=== PATIENT | male | born 1975 | race Caucasian/White ===

== ENCOUNTER 2017-03-23 10:02 | Emergency (ER) | payer BC ==
[2017-03-23 10:34] VITALS: BP 118/67
--- NOTE | 2017-03-23 10:38 | EDM.PDOC ---
ED HPI GENERAL MEDICAL PROBLEM - General Chief Complaint: Lower Extremity Injury/Pain Stated Complaint: KNEE PAIN Time Seen by Provider: 03/23/17 10:30 Source of Information: Reports: Patient, Family History Limitations: Reports: No Limitations - History of Present Illness INITIAL COMMENTS - FREE TEXT/NARRATIVE: Patient presents with left lower leg and knee pain with associated swelling. Has been on antibiotics off and on since February 28. Cefipime, rocephin and just finished augmentin. Only improvement was noted with the rocephin. Family history of Factor V Leiden. Left front leg is swollen, calf does hurt. No redness or cellulitis associated skin inflammation. He does not complain of fever, chills, no SOB or chest pain. No abdominal pain, no nausea/vomiting. He has no other complaints today. Onset: Gradual Onset Date: 02/28/17 Duration: Chronic Location: Reports: Lower Extremity, Left Quality: Reports: Ache Severity: Moderate Associated Symptoms: Reports: No Other Symptoms Treatments ACCESS CLINICIAN: Reports: Other Medication(s) Left Knee Pain Score (Numeric/FACES): 2 - Related Data Allergies Allergy/AdvReac Type Severity Reaction Status Date / Time No Known Drug Allergies Allergy Cannot Verified 04/14/14 01:03 Remember Home Meds: Home Meds Cholecalciferol (Vitamin D3) [Vitamin D] 1 cap PO DAILY 04/13/14 [History] Cyanocobalamin (Vitamin B-12) [Vitamin B-12] 1,000 mcg SL BID 04/13/14 [History] Cyanocobalamin (Vitamin B12) [Vitamin B12] 1 ml IM Q7D 04/13/14 [History] Pedi Multivit #22/Vit D3/Vit K [Multivitamins Chewables Tablet] 2 tab PO BID [History] Vitamin B Complex 1 each PO DAILY 04/13/14 [History] ALPRAZolam [Alprazolam Xr] 0.5 mg DAILY 03/23/17 [History] FLUoxetine [PROzac] 20 mg PO DAILY 03/23/17 [History] Past Medical History - Past Health History Medical/Surgical History: Denies Medical/Surgical History Social & Family History - Tobacco Use Second Hand Smoke Exposure: No - Alcohol Use Days Per Week of Alcohol Use: 1 Number of Drinks Per Day: 1 Total Drinks Per Week: 1 - Recreational Drug Use Recreational Drug Use: No Review of Systems - Review of Systems Review Of Systems: See Below Constitutional: Reports: No Symptoms Eyes: Reports: No Symptoms Ears: Reports: No Symptoms Nose: Reports: No Symptoms Mouth/Throat: Reports: No Symptoms Respiratory: Reports: No Symptoms Cardiovascular: Reports: No Symptoms GI/Abdominal: Reports: No Symptoms Genitourinary: Reports: No Symptoms Musculoskeletal: Reports: Leg Pain Skin: Reports: Erythema Neurological: Reports: No Symptoms Psychiatric: Reports: No Symptoms ED EXAM, GENERAL - Physical Exam Exam: See Below Exam Limited By: No Limitations General Appearance: Alert, WD/WN, No Apparent Distress Eye Exam: Bilateral Eye: EOMI, PERRL Head: Atraumatic, Normocephalic Neck: Normal Inspection, Supple Respiratory/Chest: No Respiratory Distress, Lungs Clear, Normal Breath Sounds, No Accessory Muscle Use Cardiovascular: Normal Peripheral Pulses, Regular Rate, Rhythm, Systolic Murmur Peripheral Pulses: 2+: Posterior Tibial (L), Posterior Tibial (R), Dorsalis Pedis (L) GI/Abdominal: Normal Bowel Sounds, Soft, Non-Tender, No Organomegaly Extremities: Normal Range of Motion, Normal Capillary Refill, Pedal Edema, Leg Pain, Other (left leg edematous from the knee down, posterior calf pain, no redness) Neurological: Alert, Oriented, CN II-XII Intact, Normal Cognition, Normal Gait, Normal Reflexes, No Motor/Sensory Deficits Psychiatric: Normal Affect, Normal Mood Skin Exam: Warm, Dry, Intact, Normal Color. No: Erythema, Increased Warmth, Wound/Incision Lymphatic: No Adenopathy Course - Vital Signs Last Recorded V/S: Last Vital Signs Temp 35.9 C 03/23/17 10:05 Pulse 60 03/23/17 10:05 Resp 16 03/23/17 10:05 BP 118/67 03/23/17 10:05 Pulse Ox - Orders/Labs/Meds Orders: Active Orders 24 hr Category Date Time Status Knee w Cont Lt [CT] Stat Exams 03/23/17 10:50 Taken CBC W/O DIFF,HEMOGRAM [HEME] Q3D Lab 03/24/17 07:00 Ordered CBC W/O DIFF,HEMOGRAM [HEME] Q3D Lab 03/27/17 07:00 Ordered CBC W/O DIFF,HEMOGRAM [HEME] Q3D Lab 03/30/17 07:00 Ordered CBC W/O DIFF,HEMOGRAM [HEME] Q3D Lab 04/02/17 07:00 Ordered CBC W/O DIFF,HEMOGRAM [HEME] Q3D Lab 04/05/17 07:00 Ordered CBC W/O DIFF,HEMOGRAM [HEME] Q3D Lab 04/08/17 07:00 Ordered CBC W/O DIFF,HEMOGRAM [HEME] Q3D Lab 04/11/17 07:00 Ordered CULTURE BLOOD [BC] Stat Lab 03/23/17 10:50 Received CULTURE BLOOD [BC] Stat Lab 03/23/17 10:56 Received FACTOR 5 LEIDEN MUTATION [REF] Stat Lab 03/23/17 10:50 Received FACTOR 8 [REF] Stat Lab 03/23/17 13:04 Received FACTOR 9 [REF] Stat Lab 03/23/17 13:04 Received PTT,PARTIAL THROMBOPLSTIN TIME [COAG] Stat Lab 03/23/17 13:13 Ordered Container,Empty [Pharmacy Consult] Med 03/23/17 13:00 Active 1 each .XX ASDIRECTED Sodium Chloride 0.9% [Normal Saline] 100 ml Med 03/23/17 11:00 Active IV ASDIRECTED Blood Culture x2 Reflex Set [OM.PC] Stat Oth 03/23/17 10:38 Ordered Medication Orders Sodium Chloride (Normal Saline) 100 mls @ 3 mls/sec IV ASDIRECTED ORTEGA Last Admin: 03/23/17 11:45 Dose: 3 mls/sec Miscellaneous Information (Pharmacy Consult) 1 each .XX ASDIRECTED [facility] Labs: Laboratory Tests 03/23/17 03/23/17 03/23/17 Range/Units 10:50 10:50 10:50 WBC 4.3 (4.0-10.0) x10^3/uL RBC 4.75 (4.5-6.0) x10^6/uL Hgb 14.4 (14.0-18.0) g/dL Hct 42.5 (40.0-52.0) % MCV 89.5 (78.0-93.0) fL MCH 30.3 (26.0-32.0) pg MCHC 33.9 (32.0-36.0) g/dL RDW Coeff of Shaun 12.9 (10.0-15.0) % Plt Count 234 (130-400) x10^3/uL Neut % (Auto) 60.2 (50.0-80.0) % Lymph % (Auto) 30.0 (25.0-50.0) % [place] % (Auto) 7.7 (2.0-11.0) % Eos % (Auto) 1.6 (0.0-4.0) % Baso % (Auto) 0.5 (0.2-1.2) % PT (10.0-12.8) SEC INR (2.0-3.5) D-Dimer, Quantitative (<=0.58) mg/LFEU Sodium 140 (136-145) mmol/L Potassium 4.2 (3.5-5.1) mmol/L Chloride 104 (98-107) mmol/L Carbon Dioxide 28 (21-32) mmol/L BUN 9 (7-18) mg/dL Creatinine 1.0 (0.70-1.30) mg/dL Est Cr Clr Drug Dosing 105.62 mL/min Estimated GFR (MDRD) > 60 Glucose 95 (74-106) mg/dL Calcium 8.4 L (8.5-10.1) mg/dL C-Reactive Protein 0.5 (<=0.9) mg/dL 03/23/17 Range/Units 10:50 WBC (4.0-10.0) x10^3/uL RBC (4.5-6.0) x10^6/uL Hgb (14.0-18.0) g/dL Hct (40.0-52.0) % MCV (78.0-93.0) fL MCH (26.0-32.0) pg MCHC (32.0-36.0) g/dL RDW Coeff of Shaun (10.0-15.0) % Plt Count (130-400) x10^3/uL Neut % (Auto) (50.0-80.0) % Lymph % (Auto) (25.0-50.0) % [place] % (Auto) (2.0-11.0) % Eos % (Auto) (0.0-4.0) % Baso % (Auto) (0.2-1.2) % PT 11.3 (10.0-12.8) SEC INR 1.0 L (2.0-3.5) D-Dimer, Quantitative 1.20 H (<=0.58) mg/LFEU Sodium (136-145) mmol/L Potassium (3.5-5.1) mmol/L Chloride (98-107) mmol/L Carbon Dioxide (21-32) mmol/L BUN (7-18) mg/dL Creatinine (0.70-1.30) mg/dL Est Cr Clr Drug Dosing mL/min Estimated GFR (MDRD) Glucose (74-106) mg/dL Calcium (8.5-10.1) mg/dL C-Reactive Protein (<=0.9) mg/dL Meds: Medications Generic Name Dose Route Start Last Admin Trade Name Freq PRN Reason Stop Dose Admin Sodium Chloride 100 mls @ 3 mls/sec 03/23/17 11:00 03/23/17 11:45 Normal Saline IV 3 mls/sec ASDIRECTED ORTEGA Administration Miscellaneous Information 1 each 03/23/17 13:00 Pharmacy Consult .XX ASDIRECTED ORTEGA Discontinued Medications Generic Name Dose Route Start Last Admin Trade Name Freq PRN Reason Stop Dose Admin Enoxaparin Sodium 140 mg 03/23/17 13:30 03/23/17 13:40 Lovenox SUBCUT 03/23/17 13:31 140 mg ONETIME ONE Administration Iopamidol 100 ml 03/23/17 10:56 03/23/17 11:40 Isovue-300 (61%) IVPUSH 03/23/17 10:57 100 ml ONETIME ONE Administration Miscellaneous Information 1 each 03/23/17 12:58 Pharmacy Consult .XX 03/23/17 12:59 ONETIME ONE Warfarin Sodium 5 mg 03/23/17 13:16 03/23/17 13:39 Coumadin PO 03/23/17 13:17 5 mg ONETIME ONE Administration - Re-Assessments/Exams Free Text/Narrative Re-Assessment/Exam: 03/23/17 13:[address] did show possible popliteal venous thrombosis, infrapatellar effusion, prepatellar soft tissue edema Departure - Departure Time of Disposition: 14:25 Disposition: Home, Self-Care 01 Condition: Good Clinical Impression: Left leg DVT - Discharge Information Instructions: Deep Vein Thrombosis Forms: ED Department Discharge Additional Instructions: You have an ultrasound scheduled for to rule out a blood clot to your left leg. They will call you with a time. You have a blood draw at the hospital before your Thursday appointment with Dr. Dunham. This will allow her to see the results of the INR and adjust your dose of warfarin/coumadin. Take your coumadin and lovenox at least until a clot is confirmed or ruled out. This will treat any clot and start dissolving it. Do not drink alcohol You should keep your leg elevated as you are able to assist with the swelling. No intense physical activity, do not rub or compress your left leg If you develop any sudden shortness of breath, chest pain, difficulty breathing you need to come to the ER immediately as these can be signs of a pulmonary embolism which is a clot in your lung. These can be fatal. Please follow up with Dr. Dunham on Thursday Call with any questions or concerns. - Problem List & Annotations (1) Left leg DVT SNOMED Code(s): 099800027 Code(s): I82.402 - ACUTE EMBOLISM AND THOMBOS UNSP DEEP VEINS OF L LOW EXTREM Status: Acute Priority: Medium Current Visit: Yes Qualifiers: Affected thrombotic vein of extremity: popliteal Chronicity: acute Qualified Code(s): I82.432 - Acute embolism and thrombosis of left popliteal vein - My Orders Last 24 Hours: My Active Orders 03/23/17 10:38 Blood Culture x2 Reflex Set [OM.PC] Stat 03/23/17 10:50 Knee w Cont Lt [CT] Stat CULTURE BLOOD [BC] Stat FACTOR 5 LEIDEN MUTATION [REF] Stat 03/23/17 10:56 CULTURE BLOOD [BC] Stat 03/23/17 11:00 Sodium Chloride 0.9% [Normal Saline] 100 ml IV ASDIRECTED 03/23/17 13:00 Container,Empty [Pharmacy Consult] 1 each .XX ASDIRECTED 03/23/17 13:04 FACTOR 8 [REF] Stat FACTOR 9 [REF] Stat 03/23/17 13:13 PTT,PARTIAL THROMBOPLSTIN TIME [COAG] Stat 03/24/17 07:00 CBC W/O DIFF,HEMOGRAM [HEME] Q3D 03/27/17 07:00 CBC W/O DIFF,HEMOGRAM [HEME] Q3D 03/30/17 07:00 CBC W/O DIFF,HEMOGRAM [HEME] Q3D 04/02/17 07:00 CBC W/O DIFF,HEMOGRAM [HEME] Q3D 04/05/17 07:00 CBC W/O DIFF,HEMOGRAM [HEME] Q3D 04/08/17 07:00 CBC W/O DIFF,HEMOGRAM [HEME] Q3D 04/11/17 07:00 CBC W/O DIFF,HEMOGRAM [HEME] Q3D - Assessment/Plan Last 24 Hours: My Active Orders 03/23/17 10:38 Blood Culture x2 Reflex Set [OM.PC] Stat 03/23/17 10:50 Knee w Cont Lt [CT] Stat CULTURE BLOOD [BC] Stat FACTOR 5 LEIDEN MUTATION [REF] Stat 03/23/17 10:56 CULTURE BLOOD [BC] Stat 03/23/17 11:00 Sodium Chloride 0.9% [Normal Saline] 100 ml IV ASDIRECTED 03/23/17 13:00 Container,Empty [Pharmacy Consult] 1 each .XX ASDIRECTED 03/23/17 13:04 FACTOR 8 [REF] Stat FACTOR 9 [REF] Stat 03/23/17 13:13 PTT,PARTIAL THROMBOPLSTIN TIME [COAG] Stat 03/24/17 07:00 CBC W/O DIFF,HEMOGRAM [HEME] Q3D 03/27/17 07:00 CBC W/O DIFF,HEMOGRAM [HEME] Q3D 03/30/17 07:00 CBC W/O DIFF,HEMOGRAM [HEME] Q3D 04/02/17 07:00 CBC W/O DIFF,HEMOGRAM [HEME] Q3D 04/05/17 07:00 CBC W/O DIFF,HEMOGRAM [HEME] Q3D 04/08/17 07:00 CBC W/O DIFF,HEMOGRAM [HEME] Q3D 04/11/17 07:00 CBC W/O DIFF,HEMOGRAM [HEME] Q3D Assessment:: left leg dvt Plan: You have an ultrasound scheduled for to rule out a blood clot to your left leg. They will call you with a time. You have a blood draw at the hospital before your Thursday appointment with Dr. Dunham. This will allow her to see the results of the INR and adjust your dose of warfarin/coumadin. Take your coumadin and lovenox at least until a clot is confirmed or ruled out. This will treat any clot and start dissolving it. Do not drink alcohol You should keep your leg elevated as you are able to assist with the swelling. No intense physical activity, do not rub or compress your left leg If you develop any sudden shortness of breath, chest pain, difficulty breathing you need to come to the ER immediately as these can be signs of a pulmonary embolism which is a clot in your lung. These can be fatal. Please follow up with Dr. Dunham on Thursday Call with any questions or concerns.
[2017-03-23] MEDS ORDERED: Iopamidol 612 MG/ML 100 ML Bottle IVPUSH ONE (10:56)
[2017-03-23] MEDS ORDERED: Sodium Chloride 0.9% 100 ML IV SCH (11:00)
[2017-03-23 11:23] LABS: CHLORIDE,CL 104 mmol/L (98-107); SODIUM,NA 140 mmol/L (136-145)
[2017-03-23] MEDS ORDERED: Warfarin 5 MG Tab PO ONE (13:16)
[2017-03-23] MEDS ORDERED: Enoxaparin 100 MG/1 ML Syringe SUBCUT ONE (13:20)
[2017-03-23] MEDS ORDERED: Enoxaparin 40 MG/0.4 ML Syringe SUBCUT ONE (13:22)
[2017-03-23] MEDS ORDERED: Enoxaparin 150 MG/1 ML Syringe SUBCUT ONE (13:30)
[2017-03-23] MEDS ORDERED: Enoxaparin 120 MG/0.8 ML Syringe SUBCUT SCH (20:00)
== END 2017-03-23 14:35 | disposition home or self-care (01) ==
LOC: VM.ED 10:02
DX: I82.402 Acute embolism and thrombosis of unspecified deep veins of left lower extremity (principal); Z79.899 Other long term (current) drug therapy
CPT/HCPCS: 36415; 73701; 80048; 81241; 85025; 85240; 85250; 85379; 85610; 85730; 86140; 87040; 96372; 99284; A9270; J1650; J7050; Q9967

== ENCOUNTER 2021-10-21 13:16 | Emergency (ER) | payer BC ==
[2021-10-21 12:28] VITALS: BP 168/93; PULSE 79
[2021-10-21] MEDS: Ondansetron 4 MG/2 ML SDV IVPUSH ONE (12:45)
[2021-10-21] MEDS: HYDROmorphone 1 MG/ML Syringe IVPUSH ONE (12:47)
[2021-10-21] MEDS: Sodium Chloride 0.9% 1,000 ML IV SCH (12:56)
[2021-10-21 13:07] LABS: PTT,PARTIAL THROMBOPLSTIN TIME 23.2 SEC (25.6-32.8)
[2021-10-21 13:12] LABS: CHLORIDE,CL 104 mmol/L (98-107); SODIUM,NA 141 mmol/L (136-145)
[~2021-10-21 13:16] MED LIST: Sodium Chloride 0.9% 10 ML Syringe FLUSH PRN
[2021-10-21 13:18] LABS: ANION GAP 14.9 mmol/L (5-15)
== END 2021-10-21 14:01 | disposition home or self-care (01) ==
LOC: VM.ED 13:16
DX: M54.2 Cervicalgia (principal); K52.9 Noninfective gastroenteritis and colitis, unspecified
CPT/HCPCS: 71260; 74177; 80053; 83735; 84100; 84484; 85025; 85610; 85730; 86140; 93005; 96374; 96375; 99284; 99284-25; J1170; J2405; J7030

== ENCOUNTER 2022-02-07 16:14 | Emergency (ER) | payer BC ==
[2022-02-07 16:57] LABS: CHLORIDE,CL 98 mmol/L (98-107); SODIUM,NA 135 mmol/L (136-145)
[2022-02-07 17:01] LABS: ANION GAP 14.5 mmol/L (5-15)
[2022-02-07 17:10] VITALS: BP 129/76; PULSE 93
[2022-02-07] MEDS ORDERED: Iopamidol 755 Mg/ML 100 ML Bottle IVPUSH ONE (18:50)
== END 2022-02-07 20:49 | disposition home or self-care (01) ==
LOC: VM.ED 16:14
DX: J90 Pleural effusion, not elsewhere classified (principal); L02.91 Cutaneous abscess, unspecified; D73.5 Infarction of spleen
CPT/HCPCS: 71275; 80053; 82150; 83690; 85025; 99284; Q9967

== ENCOUNTER 2023-01-26 11:18 | Day surgery (SDC) | payer BC ==
[~2023-01-26 11:18] MED LIST changes: +Lactated Ringers 1,000 ML IV SCH; +Propofol 200 MG/20 ML SDV ONE; -Sodium Chloride 0.9% 10 ML Syringe FLUSH PRN; +fentaNYL 100 MCG/2 ML SDV ONE
[2023-01-26 14:18] VITALS: BP 131/87; PULSE 65
== END 2023-01-26 14:54 | disposition home or self-care (01) ==
LOC: VM.SDS 11:18
PROVIDERS: ATTEND Surgery
DX: Z12.11 Encounter for screening for malignant neoplasm of colon (principal); K29.70 Gastritis, unspecified, without bleeding; K21.9 Gastro-esophageal reflux disease without esophagitis; F32.A Depression, unspecified; D68.51 Activated protein C resistance; G47.33 Obstructive sleep apnea (adult) (pediatric); E66.01 Morbid (severe) obesity due to excess calories; Z87.19 Personal history of other diseases of the digestive system; Z86.16 Personal history of COVID-19; Z98.890 Other specified postprocedural states; Z68.38 Body mass index [BMI] 38.0-38.9, adult
CPT/HCPCS: 00812; 43239; 45378; J2704; J3010

== ENCOUNTER 2025-04-18 15:28 | Emergency (ER) | payer BC ==
[2025-04-18] MEDS: Diphtheria,Pertussis(Acell),Tetanus Vaccine 0.5 ML Syringe IM ONE (15:50)
[2025-04-18 16:10] VITALS: BP 133/85; PULSE 94
== END 2025-04-18 15:57 | disposition home or self-care (01) ==
LOC: VM.ED 15:28
DX: S61.210A Laceration without foreign body of right index finger without damage to nail, initial encounter (principal); Z23 Encounter for immunization; K21.9 Gastro-esophageal reflux disease without esophagitis; Z79.899 Other long term (current) drug therapy; W26.8XXA Contact with other sharp object(s), not elsewhere classified, initial encounter
CPT/HCPCS: 12001; 90471; 90715; 99282-25; 99283

== ENCOUNTER 2025-05-26 13:52 | Emergency (ER) | payer OTHER, BC ==
[2025-05-26 14:32] VITALS: BP 140/84; PULSE 72
== END 2025-05-26 14:37 | disposition home or self-care (01) ==
LOC: VM.ED 13:52
DX: S61.512A Laceration without foreign body of left wrist, initial encounter (principal); Z79.899 Other long term (current) drug therapy; K21.9 Gastro-esophageal reflux disease without esophagitis; W26.8XXA Contact with other sharp object(s), not elsewhere classified, initial encounter
CPT/HCPCS: 12001; 99282